=== PATIENT | male | born 1955 | race American Indian/Alaskan Native ===

== ENCOUNTER 2018-02-26 01:28 | Emergency (ER) | payer OTHER ==
[2018-02-26] MEDS ORDERED: NACL 0.9% 1000 ML 1,000 ML IV ONE ×2 (02:28→09:31)
[2018-02-26 02:54] LABS: Hemoglobin 11.9 gm/dl (11.8-15.2); Mean Corpuscular HGB Conc 32 % (32-34); Mean Corpuscular Hemoglobin 34 pg (28-32); Mean Corpuscular Volume 107 fl (84-94); Red Blood Count 3.47 M/mm3 (3.65-5.03)
[2018-02-26 03:00] LABS: Platelet Count 216 K/mm3 (140-440)
[2018-02-26 03:02] LABS: INR 1.42 (0.87-1.13)
[2018-02-26 03:03] LABS: Partial Thromboplastin Time 49.6 Sec. (24.2-36.6)
[2018-02-26 03:09] LABS: Alanine Aminotransferase 35 units/L (7-56); Albumin 4.3 g/dL (3.9-5); BUN/Creatinine Ratio 18; Blood Urea Nitrogen 16 mg/dL (9-20); Calcium 9.3 mg/dL (8.4-10.2); Hemolysis Index 0; Lipase 29 units/L (13-60)
[2018-02-26 03:57] LABS: Anisocytosis 1+; Basophils % (Manual) 0 % (0.0-1.8); Eosinophils % (Manual) 0 % (0.0-4.3); Macrocytosis 1+; Monocytes % (Manual) 0 % (0.0-7.3); Total Cells Counted 100
[2018-02-26 03:58] LABS: Platelet Estimate Consistent w Auto
[2018-02-26 06:33] LABS: Bilirubin,Urine NEG (Negative); Blood,Urine NEG (Negative); Color,Urine Amber (Yellow); Mucus,Urine 3+ /HPF
[2018-02-26] MEDS ORDERED: ULTRAM PO ONE (08:34)
--- NOTE | 2018-02-26 09:08 | Emergency Department Report ---
ED Abdominal Pain HPI - General Chief Complaint: Abdominal Pain Stated Complaint: FLANK PAIN Time Seen by Provider: 02/26/18 08:27 Source: patient, EMS Mode of arrival: Stretcher Limitations: No Limitations - History of Present Illness Initial Comments: 63-year-old male with past medical history of pulmonary embolism diagnosed May this year currently hampered accident presents to the hospital with sudden onset of right flank pain since 1 AM. Pain is sharp, constant, rated 10/10 in intensity. After receiving Toradol prior to my evaluation pain is decreased to 4/10. Patient did notice some hematuria today. Denies nausea, vomiting, fever , dysuria, or history of kidney stones. Patient also denies leg weakness, numbness, or urinary retention. PMD: almaraz Severity scale (0 -10): 5 - Related Data Home Medications Medication Instructions Recorded Confirmed Last Taken Pradaxa mg PO BID 02/26/18 Unknown Previous Rx's Medication Instructions Recorded Last Taken Type Azithromycin [Zithromax Z-CHRIS] 1 dose PO DAILY 5 Days tab 02/26/18 Unknown Rx traMADol [Ultram 50 MG tab] 50 mg PO Q6HR PRN #20 tablet 02/26/18 Unknown Rx Allergies Allergy/AdvReac Type Severity Reaction Status Date / Time shellfish derived Allergy Hives Verified 02/26/18 02:25 ED Review of Systems ROS: Stated complaint: FLANK PAIN Other details as noted in HPI Comment: All other systems reviewed and negative ED Past Medical Hx - Past Medical History Additional medical history: Pulmonary Embolism (December 2017) - Surgical History Past Surgical History?: No - Social History Smoking Status: Never Smoker Substance Use Type: None - Medications Home Medications: Home Medications Medication Instructions Recorded Confirmed Last Taken Type Azithromycin [Zithromax Z-CHRIS] 1 dose PO DAILY 5 Days tab 02/26/18 Unknown Rx Pradaxa mg PO BID 02/26/18 Unknown History traMADol [Ultram 50 MG tab] 50 mg PO Q6HR PRN #20 tablet 02/26/18 Unknown Rx ED Physical Exam - General Limitations: No Limitations - Other Other exam information: General: No limitations, patient is alert in no acute distress Head exam: Atraumatic, normocephalic Eyes exam: Normal appearance ENT: Moist mucous membrane, normal oropharynx Neck exam: Normal inspection, full range of motion, no meningismus nontender Respiratory exam: Clear to auscultation bilateral, no wheezes, rales, crackles Cardiovascular: Normal rate and rhythm, normal heart sounds Abdomen: Soft, nondistended, and nontender, with normal bowel sounds, no rebound, or guarding Extremity: Full range of motion normal inspection no deformity Back: Normal Inspection, full range of motion, no tenderness, no CVA tenderness Neurologic: Alert, oriented x3, cranial nerves intact, no motor or sensory deficit Psychiatric: normal affect, normal mood Skin: Warm, dry, intact ED Course Vital Signs 02/26/18 02/26/18 02/26/18 02:19 05:08 06:00 Temperature 98.7 F 98.1 F Pulse Rate 106 H 81 Respiratory 18 16 Rate Blood Pressure 118/79 101/60 Blood Pressure 115/76 [Left] O2 Sat by Pulse 97 99 95 Oximetry 02/26/18 02/26/18 02/26/18 07:30 08:24 08:55 Temperature 98.6 F Pulse Rate 94 H Respiratory 18 18 18 Rate Blood Pressure Blood Pressure 106/71 [Left] O2 Sat by Pulse 96 96 Oximetry 02/26/18 02/26/18 09:30 09:55 Temperature 98.6 F Pulse Rate 78 Respiratory 18 18 Rate Blood Pressure Blood Pressure 131/80 [Left] O2 Sat by Pulse 96 Oximetry - Consultations Consultation #1: 02/26/18 12:17 case d/w Dr Vo with mullens informed of diag, abx, d/c plan will have RN call pt to schedule Wednesday f/u I verified pts phone number for f/u call ED Medical Decision Making - Lab Data Result diagrams: 02/26/18 02:38 02/26/18 02:38 Lab Results 02/26/18 02/26/18 02/26/18 Range/Units 02:38 02:38 02:38 WBC 7.3 (4.5-11.0) K/mm3 RBC 3.47 L (3.65-5.03) M/mm3 Hgb 11.9 (11.8-15.2) gm/dl Hct 37.0 (35.5-45.6) % MCV 107 H (84-94) fl MCH 34 H (28-32) pg MCHC 32 (32-34) % RDW 16.0 H (13.2-15.2) % Plt Count 216 (140-440) K/mm3 Add Manual Diff Complete Total Counted 100 Seg Neuts % (Manual) 75.0 H (40.0-70.0) % Band Neutrophils % 14.0 % Lymphocytes % (Manual) 11.0 L (13.4-35.0) % Reactive Lymphs % (Man) 0 % Monocytes % (Manual) 0 (0.0-7.3) % Eosinophils % (Manual) 0 (0.0-4.3) % Basophils % (Manual) 0 (0.0-1.8) % Metamyelocytes % 0 % Myelocytes % 0 % Promyelocytes % 0 % Blast Cells % 0 % Nucleated RBC % Not Reportable Seg Neutrophils # Man 5.5 (1.8-7.7) K/mm3 Band Neutrophils # 1.0 K/mm3 Lymphocytes # (Manual) 0.8 L (1.2-5.4) K/mm3 Abs React Lymphs (Man) 0.0 K/mm3 Monocytes # (Manual) 0.0 (0.0-0.8) K/mm3 Eosinophils # (Manual) 0.0 (0.0-0.4) K/mm3 Basophils # (Manual) 0.0 (0.0-0.1) K/mm3 Metamyelocytes # 0.0 K/mm3 Myelocytes # 0.0 K/mm3 Promyelocytes # 0.0 K/mm3 Blast Cells # 0.0 K/mm3 WBC Morphology Not Reportable Hypersegmented Neuts Not Reportable Hyposegmented Neuts Not Reportable Hypogranular Neuts Not Reportable Smudge Cells Not Reportable Toxic Granulation Not Reportable Toxic Vacuolation Not Reportable Dohle Bodies Not Reportable Pelger-Huet Anomaly Not Reportable Sadia Rods Not Reportable Platelet Estimate Consistent w auto Clumped Platelets Not Reportable Plt Clumps, EDTA Not Reportable Large Platelets Not Reportable Giant Platelets Not Reportable Platelet Satelliting Not Reportable Plt Morphology Comment Not Reportable RBC Morphology Not Reportable Dimorphic RBCs Not Reportable Polychromasia Not Reportable Hypochromasia Not Reportable Poikilocytosis Not Reportable Anisocytosis 1+ Microcytosis Not Reportable Macrocytosis 1+ Spherocytes Not Reportable Pappenheimer Bodies Not Reportable Sickle Cells Not Reportable Target Cells Not Reportable Tear Drop Cells Not Reportable Ovalocytes Not Reportable Helmet Cells Not Reportable [place] Bodies Not Reportable Buckhorn Rings Not Reportable Linnette Cells Not Reportable Bite Cells Not Reportable Crenated Cell Not Reportable Elliptocytes 1+ Acanthocytes (Spur) Not Reportable Rouleaux Not Reportable Hemoglobin C Crystals Not Reportable Schistocytes Not Reportable Malaria parasites Not Reportable Maycol Bodies Not Reportable Hem Pathologist Commnt No PT 18.2 H (12.2-14.9) Sec. INR 1.42 H (0.87-1.13) APTT 49.6 H (24.2-36.6) Sec. Sodium 134 L (137-145) mmol/L Potassium 3.9 (3.6-5.0) mmol/L Chloride 97.3 L (98-107) mmol/L Carbon Dioxide 21 L (22-30) mmol/L Anion Gap 20 mmol/L BUN 16 (9-20) mg/dL Creatinine 0.9 (0.8-1.5) mg/dL Estimated GFR > 60 ml/min BUN/Creatinine Ratio 18 % Glucose 152 H (75-100) mg/dL Calcium 9.3 (8.4-10.2) mg/dL Total Bilirubin 1.90 H (0.1-1.2) mg/dL AST 51 H (5-40) units/L ALT 35 (7-56) units/L Alkaline Phosphatase 78 (35-129) units/L Total Protein 7.4 (6.3-8.2) g/dL Albumin 4.3 (3.9-5) g/dL Albumin/Globulin Ratio 1.4 % Lipase 29 (13-60) units/L Urine Color (Yellow) Urine Turbidity (Clear) Urine pH (5.0-7.0) Ur Specific Secretary (1.003-1.030) Urine Protein (Negative) mg/dL Urine Glucose (UA) (Negative) mg/dL Urine Ketones (Negative) mg/dL Urine Blood (Negative) Urine Nitrite (Negative) Urine Bilirubin (Negative) Urine Urobilinogen (<2.0) mg/dL Ur Leukocyte Esterase (Negative) Urine WBC (Auto) (0.0-6.0) /HPF Urine RBC (Auto) (0.0-6.0) /HPF U Epithel Cells (Auto) (0-13.0) /HPF Urine Mucus /HPF 07/21/18 Range/Units 06:18 WBC (4.5-11.0) K/mm3 RBC (3.65-5.03) M/mm3 Hgb (11.8-15.2) gm/dl Hct (35.5-45.6) % MCV (84-94) fl MCH (28-32) pg MCHC (32-34) % RDW (13.2-15.2) % Plt Count (140-440) K/mm3 Add Manual Diff Total Counted Seg Neuts % (Manual) (40.0-70.0) % Band Neutrophils % % Lymphocytes % (Manual) (13.4-35.0) % Reactive Lymphs % (Man) % Monocytes % (Manual) (0.0-7.3) % Eosinophils % (Manual) (0.0-4.3) % Basophils % (Manual) (0.0-1.8) % Metamyelocytes % % Myelocytes % % Promyelocytes % % Blast Cells % % Nucleated RBC % Seg Neutrophils # Man (1.8-7.7) K/mm3 Band Neutrophils # K/mm3 Lymphocytes # (Manual) (1.2-5.4) K/mm3 Abs React Lymphs (Man) K/mm3 Monocytes # (Manual) (0.0-0.8) K/mm3 Eosinophils # (Manual) (0.0-0.4) K/mm3 Basophils # (Manual) (0.0-0.1) K/mm3 Metamyelocytes # K/mm3 Myelocytes # K/mm3 Promyelocytes # K/mm3 Blast Cells # K/mm3 WBC Morphology Hypersegmented Neuts Hyposegmented Neuts Hypogranular Neuts Smudge Cells Toxic Granulation Toxic Vacuolation Dohle Bodies Pelger-Huet Anomaly Sadia Rods Platelet Estimate Clumped Platelets Plt Clumps, EDTA Large Platelets Giant Platelets Platelet Satelliting Plt Morphology Comment RBC Morphology Dimorphic RBCs Polychromasia Hypochromasia Poikilocytosis Anisocytosis Microcytosis Macrocytosis Spherocytes Pappenheimer Bodies Sickle Cells Target Cells Tear Drop Cells Ovalocytes Helmet Cells [place] Bodies Buckhorn Rings Linnette Cells Bite Cells Crenated Cell Elliptocytes Acanthocytes (Spur) Rouleaux Hemoglobin C Crystals Schistocytes Malaria parasites Maycol Bodies Hem Pathologist Commnt PT (12.2-14.9) Sec. INR (0.87-1.13) APTT (24.2-36.6) Sec. Sodium (137-145) mmol/L Potassium (3.6-5.0) mmol/L Chloride (98-107) mmol/L Carbon Dioxide (22-30) mmol/L Anion Gap mmol/L BUN (9-20) mg/dL Creatinine (0.8-1.5) mg/dL Estimated GFR ml/min BUN/Creatinine Ratio % Glucose (75-100) mg/dL Calcium (8.4-10.2) mg/dL Total Bilirubin (0.1-1.2) mg/dL AST (5-40) units/L ALT (7-56) units/L Alkaline Phosphatase (35-129) units/L Total Protein (6.3-8.2) g/dL Albumin (3.9-5) g/dL Albumin/Globulin Ratio % Lipase (13-60) units/L Urine Color [place] (Yellow) Urine Turbidity Clear (Clear) Urine pH 5.0 (5.0-7.0) Ur Specific Secretary 1.026 (1.003-1.030) Urine Protein 100 mg/dl (Negative) mg/dL Urine Glucose (UA) 50 (Negative) mg/dL Urine Ketones Neg (Negative) mg/dL Urine Blood Neg (Negative) Urine Nitrite Neg (Negative) Urine Bilirubin Neg (Negative) Urine Urobilinogen 4.0 (<2.0) mg/dL Ur Leukocyte Esterase Neg (Negative) Urine WBC (Auto) 1.0 (0.0-6.0) /HPF Urine RBC (Auto) 2.0 (0.0-6.0) /HPF U Epithel Cells (Auto) < 1.0 (0-13.0) /HPF Urine Mucus 3+ /HPF - Radiology Data Radiology results: report reviewed EXAM: CT ABDOMEN PELVIS WO CON HISTORY: right flank pain TECHNIQUE: Noncontrast CT of the abdomen and pelvis performed. No IV or gastrointestinal contrast was administered. Axial images and coronal and sagittal reformatted images were obtained. PRIORS: None. FINDINGS: There is right lower lobe infiltrate, consistent with pneumonia. Within the limitations of a non-enhanced study, the visualized liver, spleen, pancreas, adrenal glands and kidneys demonstrate no significant abnormalities. There are no renal stones, ureteral stones, hydronephrosis, or evidence of obstructive uropathy. There is no abdominal aortic aneurysm. There is no evidence of intestinal obstruction. The appendix is normal. There are no abnormal fluid collections seen. The bladder is unremarkable. There is no abnormal pelvic mass or fluid collections seen. IMPRESSION: Right lower lobe pneumonia. There is no nephrolithiasis, hydronephrosis or other evidence for acute obstructive uropathy. - Medical Decision Making incidental pneumonia identified pt denies fever but occasional cough reported no signs of sepsis or septic shock blood cultures obtained prior to abx pt will be d/dominga with abx and mullens f/u CURB 65 score 0 therefore pt is a candidate for outpatient treatment - Differential Diagnosis renal colic, biliary colic, UTI, hematoma Critical Care Time: No Critical care attestation.: If time is entered above; I have spent that time in minutes in the direct care of this critically ill patient, excluding procedure time. ED Disposition Clinical Impression: RLL pneumonia, Hx of pulmonary embolus, Anticoagulated by anticoagulation treatment Disposition: TO HOME OR SELFCARE Is pt being admited?: No Does the pt Need Aspirin: No Condition: Stable Instructions: Community-acquired Pneumonia (ED) Additional Instructions: Follow-up with [facility] as scheduled on Wednesday. Take medication as prescribed. Return is symptoms worsen as indicated by your discharge instructions. Take a copy of your labs, CAT scan, and x-ray report to your doctor for follow-up Prescriptions: Azithromycin [Zithromax Z-CHRIS] 1 dose PO DAILY 5 Days tab traMADol [Ultram 50 MG tab] 50 mg PO Q6HR PRN #20 tablet PRN Reason: Pain Referrals: [facility] [Other] - 02/28/18 Time of Disposition: 12:32
--- NOTE | 2018-02-26 09:13 | Cat Scan Report ---
FINAL REPORT EXAM: CT ABDOMEN PELVIS WO CON HISTORY: right flank pain TECHNIQUE: Noncontrast CT of the abdomen and pelvis performed. No IV or gastrointestinal contrast was administered. Axial images and coronal and sagittal reformatted images were obtained. PRIORS: None. FINDINGS: There is right lower lobe infiltrate, consistent with pneumonia. Within the limitations of a non-enhanced study, the visualized liver, spleen, pancreas, adrenal glands and kidneys demonstrate no significant abnormalities. There are no renal stones, ureteral stones, hydronephrosis, or evidence of obstructive uropathy. There is no abdominal aortic aneurysm. There is no evidence of intestinal obstruction. The appendix is normal. There are no abnormal fluid collections seen. The bladder is unremarkable. There is no abnormal pelvic mass or fluid collections seen. IMPRESSION: Right lower lobe pneumonia. There is no nephrolithiasis, hydronephrosis or other evidence for acute obstructive uropathy.
[2018-02-26] MEDS ORDERED: ZITHROMAX 500 MG in NACL 0.9% 250ML 250 ML IV ONE (10:00)
[2018-02-26] MEDS ORDERED: ROCEPHIN/NS 1 GM/50 ML 1 GM/50 ML BAG IV ONE (10:00)
--- NOTE | 2018-02-26 11:10 | XRay Report ---
FINAL REPORT EXAM: XR CHEST ROUTINE 2V HISTORY: right flank pain possible infiltrate on ct COMPARISON: CT of the abdomen and pelvis performed on 02/26/2018 TECHNIQUE: Frontal and lateral view of the chest FINDINGS: The cardiomediastinal silhouette is normal in appearance. There is patchy infiltrate in the peripheral right lower lobe. The left lung is clear. No pleural effusion or pneumothorax. No acute bony or soft tissue abnormality. IMPRESSION: Patchy infiltrate in the peripheral right lower lobe.
[2018-02-26 13:45] VITALS: BP 131/70
== END 2018-02-26 13:46 | disposition home or self-care (01) ==
LOC: ED 01:28
DX: J18.1 Lobar pneumonia, unspecified organism (principal); R31.9 Hematuria, unspecified; Z86.711 Personal history of pulmonary embolism; Z79.01 Long term (current) use of anticoagulants; Z91.013 Allergy to seafood
CPT/HCPCS: 36415; 71046; 74176; 80053; 81001; 83690; 85007; 85025; 85610; 85730; 87040; 96365; 96367; 99285; J0456; J0696; J7030; J7050